=== PATIENT | female | born 1965 | race Caucasian/White ===

== ENCOUNTER → 2023-12-31 13:12 | Outpatient (REF) | payer OTHER, SELFPAY | LOC: HWRAD 13:12 | PROVIDERS: ATTENDING PHYSICIAN Family Medicine | DX: N64.4 Mastodynia (principal); Z78.0 Asymptomatic menopausal state | CPT/HCPCS: 77062; 77066; 77080 ==

== ENCOUNTER → 2024-01-05 08:17 | Outpatient (REF) | payer OTHER, SELFPAY | LOC: HWRAD 08:17 | PROVIDERS: ATTENDING PHYSICIAN Family Medicine | DX: Z90.3 Acquired absence of stomach [part of] (principal); R10.11 Right upper quadrant pain | CPT/HCPCS: 76700 ==

== ENCOUNTER → 2024-01-20 06:29 | Day surgery (SDC) | payer OTHER, SELFPAY | LOC: GI 06:29 | PROVIDERS: ATTENDING PHYSICIAN Internal Medicine Gastroenterology | DX: K21.00 Gastro-esophageal reflux disease with esophagitis, without bleeding (principal); K22.89 Other specified disease of esophagus; K29.50 Unspecified chronic gastritis without bleeding; K22.70 Barrett's esophagus without dysplasia; Z98.84 Bariatric surgery status | CPT/HCPCS: 43239; 88305; 88342 ==

== ENCOUNTER → 2024-05-06 12:50 | Outpatient (REF) | payer OTHER, SELFPAY | LOC: HWRAD 12:50 | PROVIDERS: ATTENDING PHYSICIAN Physician Assistant; FAMILY PHYSICIAN Family Medicine | DX: R10.9 Unspecified abdominal pain (principal) | CPT/HCPCS: 74176 ==

== ENCOUNTER → 2025-03-30 14:58 | Outpatient (REF) | payer OTHER, SELFPAY | LOC: HWRAD 14:58 | PROVIDERS: ATTENDING PHYSICIAN Family Medicine | DX: R50.9 Fever, unspecified (principal); R05.8 Other specified cough | CPT/HCPCS: 71046 ==